=== PATIENT | male | born 1995 ===

== ENCOUNTER 2021-05-31 22:13 | Emergency (ER) | payer OTHER ==
[2021-06-01] MEDS ORDERED: KETOROLAC 60 MG/2 ML INJ IM STA (00:13)
--- NOTE | 2021-06-01 00:14 | Emergency Department Report ---
ED Chest Pain HPI - General Chief Complaint: Dyspnea/Respdistress Stated Complaint: MARRY Time Seen by Provider: 06/01/21 00:13 Source: patient Mode of arrival: Ambulatory Limitations: No Limitations - History of Present Illness MD Complaint: chest pain Pain Location: substernal, epigastric Pain Radiation: none Severity: mild, moderate Quality: aching Improves With: nothing Worsens With: palpation Other Symptoms: denies: fever, syncope, acid taste in mouth, leg swelling, burping, other Treatments Prior to Arrival: none - Related Data Previous Rx's Medication Instructions Recorded Last Taken Type Ketorolac [Toradol] 10 mg PO Q6H PRN #20 tablet 06/01/21 Unknown Rx Allergies Allergy/AdvReac Type Severity Reaction Status Date / Time No Known Allergies Allergy Unverified 05/31/21 23:35 Heart Score - HEART Score History: Slightly suspicious EKG: Normal Age: < 45 Risk factors: 1-2 risk factors Troponin: < normal limit HEART Score: 1 - EKG Read Time Time EKG Completed: 00:35 EKG Read Time: 00:40 ED Review of Systems ROS: Stated complaint: MARRY Other details as noted in HPI Comment: All other systems reviewed and negative ED Past Medical Hx - Past Medical History Previous Medical History?: No - Surgical History Past Surgical History?: No - Social History Smoking Status: Current Every Day Smoker Substance Use Type: Alcohol - Medications Home Medications: Home Medications Medication Instructions Recorded Confirmed Last Taken Type Ketorolac [Toradol] 10 mg PO Q6H PRN #20 tablet 06/01/21 Unknown Rx ED Physical Exam - General Limitations: No Limitations General appearance: alert, in no apparent distress - Head Head exam: Present: atraumatic, normocephalic - Eye Eye exam: Present: normal appearance - ENT ENT exam: Present: mucous membranes moist - Neck Neck exam: Present: normal inspection, lymphadenopathy - Respiratory Respiratory exam: Present: normal lung sounds bilaterally, chest wall tenderness. Absent: respiratory distress - Cardiovascular Cardiovascular Exam: Present: regular rate, normal rhythm. Absent: systolic murmur, diastolic murmur, rubs, gallop - GI/Abdominal GI/Abdominal exam: Present: soft, normal bowel sounds - Rectal Rectal exam: Present: deferred - Extremities Exam Extremities exam: Present: normal inspection - Back Exam Back exam: Present: normal inspection - Neurological Exam Neurological exam: Present: alert, oriented X3 - Psychiatric Psychiatric exam: Present: normal affect, normal mood - Skin Skin exam: Present: warm, dry, intact, normal color. Absent: rash ED Course Vital Signs 05/31/21 23:25 Temperature 98.4 F Pulse Rate 97 H Respiratory 18 Rate Blood Pressure 171/103 O2 Sat by Pulse 95 Oximetry JANE score - Jane Score Age > 65: (0) No Aspirin use within the Past 7 Days: (0) No 3 or more CAD Risk Factors: (0) No 2 or more Angina events in past 24 hrs: (0) No Known CAD with more than 50% Stenosis: (0) No Elevated Cardiac Markers: (0) No ST Deviation Greater than 0.5mm: (0) No JANE Score: 0 ED Medical Decision Making - Lab Data Result diagrams: 06/01/21 00:39 06/01/21 00:39 - EKG Data EKG shows normal: sinus rhythm Rate: normal - EKG Data When compared to previous EKG there are: no significant change Interpretation: normal EKG - Medical Decision Making This patient presents with chest pain that is very unlikely angina or acute coronary syndrome. The emergency department evaluation has not identified any cause for suspicion that this chest pain has a cardiac etiology. Based on their history, EKG (which showed no evidence of ischemia or infarction) and imaging, in addition to the patient's physical exam, I see no evidence at this time for a malignant etiology for the patient's chest pain. There is no acute evidence for pulmonary embolus, acute myocardial infarction, pneumothorax, Boerhaeve syndrome, cardiac tamponade, thoracic artery dissection, or any other emergent cardiac, pulmonary or aortic pathology. Given the low pre-test probability for cardiac etiology of chest pain and the absence of any sign of ischemia or infarction, discharge for outpatient follow-up and further evaluation is reasonable. I have explained to the patient that even though a cardiac problem is very unlikely, follow-up and further testing is required to reduce further the already small uncertainty that exists. Other life-threatening diagnoses have been considered. The patient understands the need to return immediately if their symptoms worsen or they develop any new symptoms, and not to engage in any significant exertional activity until follow-up is obtained. Critical care attestation.: If time is entered above; I have spent that time in minutes in the direct care of this critically ill patient, excluding procedure time. ED Disposition Clinical Impression: Chest pain Disposition: HOME / SELF CARE / HOMELESS Is pt being admited?: No Does the pt Need Aspirin: No Condition: Stable Instructions: Nonspecific Chest Pain, Adult, Nonspecific Chest Pain, Adult, [id number], Costochondritis Prescriptions: Ketorolac [Toradol] 10 mg PO Q6H PRN #20 tablet PRN Reason: Pain Referrals: [facility] [place] [Provider Group] - 3-5 Days
--- NOTE | 2021-06-01 00:39 | XRay Report ---
XR chest routine 2V INDICATION / CLINICAL INFORMATION: floyd. COMPARISON: None available. FINDINGS: SUPPORT DEVICES: None. HEART /PULMONARY VASCULATURE: No significant abnormality. LUNGS / PLEURA: No significant pulmonary or pleural abnormality. No pneumothorax. ADDITIONAL FINDINGS: No significant additional findings. IMPRESSION: 1. No acute findings. Signer Name: Antoni Nunez MD Signed: 06/01/2021 12:35 AM Workstation Name: [id number]
[2021-06-01 01:05] LABS: Basophils # (Auto) 0.1 K/mm3 (0.0-0.1); Basophils % (Auto) 1.5 % (0.0-1.8); Eosinophils # (Auto) 0.2 K/mm3 (0.0-0.4); Eosinophils % (Auto) 3.3 % (0.0-4.3); Lymphocytes # (Auto) 2.1 K/mm3 (1.2-5.4); Lymphocytes % (Auto) 36.1 % (13.4-35.0); Mean Corpuscular HGB Conc 37 % (32-34); Mean Corpuscular Volume 95 fl (84-94); Monocytes # (Auto) 0.4 K/mm3 (0.0-0.8); Monocytes % (Auto) 6.4 % (0.0-7.3); Platelet Count 264 K/mm3 (140-440); Red Blood Count 4.61 M/mm3 (3.65-5.03); Red Cell Distribution Width 13.5 % (13.2-15.2)
[2021-06-01 01:24] LABS: Hematocrit 43.6 % (35.5-45.6)
[2021-06-01 01:31] LABS: Blood Urea Nitrogen 6 mg/dL (9-20); Calcium 10.4 mg/dL (8.4-10.2); Hemolysis Index 4
[2021-06-01 01:40] LABS: BUN/Creatinine Ratio 9
[2021-06-01] MEDS ORDERED: ONDANSETRON 4 MG/2 ML INJ IV ONE (02:55)
[2021-06-01 03:06] VITALS: BP 141/93
--- NOTE | 2021-06-02 11:35 | Electrocardiograph Report ---
[facility] Test Date: 2021-05-31 Test Time: 23:57:05 Pat Name: CHICHO ALANIS Department: Room: Gender: M Classroom Instructional Aide: ED : 1995 Requested By: JEM KING Order Number: [id number] Reading MD: Altagracia Owen Measurements Intervals [place] Rate: 115 P: 55 CO: 158 QRS: 27 QRSD: 83 T: 13 QT: 330 QTc: 458 Interpretive Statements Sinus tachycardia No previous ECG available for comparison Electronically Signed On 06-02-2021 11:34:48 EDT by Altagracia Owen
== END 2021-06-01 04:15 | disposition home or self-care (01) ==
LOC: ED 22:13
DX: R07.89 Other chest pain (principal); R10.13 Epigastric pain; F17.210 Nicotine dependence, cigarettes, uncomplicated
CPT/HCPCS: 36415; 71046; 80048; 84484; 85025; 93005; 96372; 96374; 99284; J1885; J2405